=== PATIENT | male | born 1960 | race Caucasian/White ===

== ENCOUNTER 2018-06-10 03:14 | Inpatient (IN) | payer OTHER ==
[2018-06-10] VITALS (9 sets, daily range): BP systolic 105–140; BP diastolic 65–93
[~2018-06-10] VITALS: Ht 180.3 cm; Wt 95.3 kg
--- NOTE | 2018-06-10 03:26 | Emergency Room Report ---
History of Present Illness General Chief Complaint: To Be Triaged Source: Patient, Medical Record Present Illness HPI This is a 57-year-old male with a history of chronic A. fib. He takes about those. He present with chief complaint of chest pain and also dizziness. Before he went to sleep he has some chest pain. That went away. Localized the left chest area. It was dull. He woke up feeling dizzy. When he moved his head thing seemed to be moving. He said he has blurry vision. [place] like there is a screen in front of his eyes. [place] like he has slurred speech. Unsteady gait. No focal deficit. No nausea no vomiting. No fever or chills. Also with tingliness and numbness in his hands. Allergies: Coded Allergies: No Known Allergies (Verified , 08/24/11) Patient History Past Medical History: see triage record, old chart reviewed, HTN, CAD, AFib Past Surgical History: other Pertinent Family History: none Social History: Reports: smoking, alcohol use - Social; Denies: drug use Immunizations: other Reviewed Nursing Documentation: PMH: Agreed; PSxH: Agreed Review of Systems Eye: Denies: eye pain, blurred vision ENT: Denies: ear pain, nose congestion, throat swelling Respiratory: Denies: cough, shortness of breath Cardiovascular: Reports: chest pain; Denies: palpitations Gastrointestinal: Denies: abdominal pain, diarrhea, nausea, vomiting Musculoskeletal: Denies: back pain, joint pain Skin: Denies: rash Neurological: Reports: headache, dizziness; Denies: numbness Endocrine: Denies: increased thirst, increased urine Hematologic/Lymphatic: Denies: easy bruising All Other Systems: negative except mentioned in HPI Physical Exam Sp02 EP Interpretation: reviewed, normal General Appearance: well appearing, no apparent distress, alert Head: normocephalic, atraumatic Eyes: bilateral eye PERRL, bilateral eye EOMI ENT: hearing grossly normal, normal pharynx Neck: full range of motion, supple, no meningismus Respiratory: chest non-tender, lungs clear, normal breath sounds Cardiovascular #1: no murmur, tachycardia, irregularly irregular Gastrointestinal: normal bowel sounds, non tender, no mass, no organomegaly, no bruit, non-distended Musculoskeletal: back normal, gait/station normal, normal range of motion Psychiatric: anxious Skin: warm/dry Medical Decision Making Diagnostic Impression: Primary Impression: Chest pain Qualified Codes: R07.9 - Chest pain, unspecified Additional Impressions: CHF exacerbation Qualified Codes: I50.9 - Heart failure, unspecified Chronic atrial fibrillation Dizziness Hypokalemia ER Course Patient presents with dizziness and chest pain. EKG with chronic A. fib. He has not taking his Lasix for a few days. He did take it tonight however. No evidence of TIA or CVA. Because of his symptoms, will admit for further workup. I contacted Dr. Lao for admission. Lab Results Impression labs unremarkable except for elevated BNP EKG Diagnostic Results Rate: normal Rhythm: other - A. fib ST Segments: other - Nonspecific ST change ASA given to the pt in ED: No Rhythm Strip Diag. Results Rhythm Strip Time: 06:20 EP Interpretation: yes Rate: 78 Rhythm: no PVC's, no ectopy Status: improved Disposition: ADMITTED INPATIENT Condition: Serious Kojo Cat MD Jun 10, 2018 03:26
[2018-06-10] MEDS ORDERED: METOPROLOL SUCC25 MG ORAL ×2 (03:38→11:29)
[2018-06-10] MEDS ORDERED: XARELTO10 MG ORAL (03:39)
[2018-06-10] MEDS ORDERED: FUROSEMIDE80 M1 ORAL (03:40)
[2018-06-10] MEDS ORDERED: NORVASC2.5 MG ORAL (03:40)
[2018-06-10] MEDS ORDERED: CITALOPRAM HBR10 M1 ORAL (03:41)
[2018-06-10] MEDS ORDERED: LISINOPRIL5 MG ORAL ×2 (03:42→11:29)
[2018-06-10] MEDS ORDERED: DIGOXIN0.125 MG/2 ORAL (03:42)
[2018-06-10 03:50] LABS: BASOPHILS % (AUTO) 1.2 % (0.0-2.0); EOSINOPHILS % (AUTO) 2.6 % (0.0-3.0); HEMATOCRIT 48.8 % (42.0-52.0); HEMOGLOBIN 16.6 G/DL (14.2-18.0); LYMPHOCYTES % (AUTO) 37.8 % (20.0-45.0); MEAN CORPUSCULAR VOLUME 95 FL (80-99); MONOCYTES % (AUTO) 10.1 % (1.0-10.0); NEUTROPHILS % (AUTO) 48.3 % (45.0-75.0); PLATELET COUNT 150 K/UL (150-450); RED BLOOD COUNT 5.11 M/UL (4.70-6.10); RED CELL DISTRIBUTION WIDTH 12.5 % (11.6-14.8); WHITE BLOOD COUNT 8.5 K/UL (4.8-10.8)
[2018-06-10 04:03] LABS: ANION GAP 11 mmol/L (5-15); BLOOD UREA NITROGEN 10 mg/dL (7-18); CALCIUM 9.2 MG/DL (8.5-10.1); CARBON DIOXIDE 30 MMOL/L (21-32); CHLORIDE 95 MMOL/L (98-107); POTASSIUM 3.2 MMOL/L (3.5-5.1); SODIUM 136 MMOL/L (136-145)
[2018-06-10 04:04] LABS: APPEARANCE,URINE CLEAR; BILIRUBIN, URINE NEGATIVE (NEGATIVE); GLUCOSE, URINE (UA) NEGATIVE (NEGATIVE); KETONES,URINE NEGATIVE (NEGATIVE); LEUKOCYTE ESTERASE ,URINE 1+ (NEGATIVE); NITRITE,URINE NEGATIVE (NEGATIVE); PH,URINE 5 (4.5-8.0); PROTEIN,URINE 1+ (NEGATIVE); UROBILINOGEN,URINE 4 MG/DL (0.0-1.0)
[2018-06-10 04:05] LABS: INR 1.1 (0.9-1.1)
[2018-06-10 04:15] LABS: COLOR,URINE YELLOW
[2018-06-10 04:18] LABS: ALANINE AMINOTRANSFERASE 29 U/L (12-78); ALBUMIN 3.8 G/DL (3.4-5.0); ALBUMIN/GLOBULIN RATIO 0.7 (1.0-2.7); ALKALINE PHOSPHATASE 142 U/L (46-116); ASPARTATE AMINO TRANSFERASE 34 U/L (15-37); BILIRUBIN,TOTAL 0.7 MG/DL (0.2-1.0); CKMB < 0.5 NG/ML (0.0-3.6); CREATINE KINASE 67 U/L (26-308)
[2018-06-10] MEDS ORDERED: LORazepam Inj 2mg/ml 1ml IV ONE (05:15)
--- NOTE | 2018-06-10 08:57 | Diagnostic Imaging Report ---
Indication: Altered mental status Technique: Contiguous 5 mm thick transaxial imaging of the head obtained in a Siemens Sensation [address] scanner. Soft tissue and bone windows generated. Automatic Exposure Control was utilized. Total Dose length Product (DLP): 1474.[address] Dose Index Volume (CTDIvol): 70.38 mGy Comparison: none Findings: There is mild prominence of the ventricles, basal cisterns, and cerebral sulci consistent with atrophy. Mild, nonspecific, white matter hypoattenuation is noted throughout the brain consistent with chronic small vessel disease. There is no midline shift, edema, acute hemorrhage, mass effect, or abnormal extra-axial fluid collections. Bones and extra osseous soft tissues are unremarkable. Impression: No acute intracranial bleed, mass effect or edema. Mild atrophy of the brain. Nonspecific white matter hypoattenuation probably due to chronic small vessel disease. [facility] has communicated the preliminary results to the Emergency Department. Their findings are largely concordant with this report. The CT scanner at [facility] is accredited by the [employer] and the scans are performed using dose optimization techniques as appropriate to a performed exam including Automatic Exposure control.
--- NOTE | 2018-06-10 11:05 | Diagnostic Imaging Report ---
Indication: Chest pain Comparison: 08/28/2011 A single view chest radiograph was obtained. Findings: Cardiomegaly is present. The left hemidiaphragm is slightly elevated with pleural thickening again noted. Bones are osteopenic. Old rib fractures noted on the right. IMPRESSION: Scarring at the left lung base again noted. Cardiomegaly
[2018-06-10] MEDS ORDERED: CELEXA20 MG ORAL (11:29)
[2018-06-10] MEDS ORDERED: DIGOXIN125 MCG ORAL (11:29)
[2018-06-10] MEDS ORDERED: SPIRONOLACTONE100 MG ORAL (11:30)
[2018-06-10] MEDS ORDERED: XARELTO20 MG ORAL (11:30)
[2018-06-10] MEDS ORDERED: Miralax 17gm pkt ORAL PRN (12:30)
[2018-06-10] MEDS ORDERED: Albuterol/Ipratropium 3ml neb HHN PRN (12:30)
[2018-06-10] MEDS ORDERED: Morphine Sulfate 4mg/ml Inj (IV/IM USE ONLY) IVP PRN (12:30)
[2018-06-10] MEDS ORDERED: Enalaprilat 2.5mg/2ml Inj IV PRN (12:30)
[2018-06-10] MEDS ORDERED: Nitroglycerin Subl 0.4mg tab SL PRN (12:30)
[2018-06-10] MEDS: Metoprolol Succinate XL 25mg tab ORAL SCH (13:38)
[2018-06-10] MEDS: Xarelto 10mg tab ORAL SCH (13:38)
[2018-06-10 14:16] LABS: ANION GAP 6 mmol/L (5-15); BLOOD UREA NITROGEN 12 mg/dL (7-18); CALCIUM 9.1 MG/DL (8.5-10.1); CARBON DIOXIDE 32 MMOL/L (21-32); CHLORIDE 99 MMOL/L (98-107); POTASSIUM 3.8 MMOL/L (3.5-5.1); SODIUM 137 MMOL/L (136-145)
[2018-06-10 14:32] LABS: ALANINE AMINOTRANSFERASE 18 U/L (12-78); ALBUMIN/GLOBULIN RATIO 0.7 (1.0-2.7); ALKALINE PHOSPHATASE 108 U/L (46-116); ASPARTATE AMINO TRANSFERASE 19 U/L (15-37); BILIRUBIN,TOTAL 0.4 MG/DL (0.2-1.0); CHOLESTEROL 155 MG/DL (< 200); HDL CHOLESTEROL 52 MG/DL (40-60); TRIGLYCERIDES 207 MG/DL (30-150)
--- NOTE | 2018-06-10 14:38 | Consultation ---
History of Present Illness General Chief Complaint: Chest Pain Present Illness Allergies: Coded Allergies: No Known Allergies (Verified , 08/24/11) Medication History Scheduled Amlodipine Besylate (Norvasc), 0 ORAL DAILY, (Reported) Citalopram Hydrobromide* (Citalopram Hbr*), 0 ORAL DAILY, (Reported) Citalopram Hydrobromide* (Celexa*), 20 MG ORAL DAILY, (Reported) Digoxin* (Digoxin*), 0 ORAL DAILY, (Reported) Digoxin* (Digoxin*), 125 MCG ORAL DAILY, (Reported) Furosemide* (Lasix*), 80 MG ORAL DAILY, (Reported) Lisinopril (Lisinopril*), 0 ORAL DAILY, (Reported) Lisinopril (Lisinopril*), 2.5 MG ORAL DAILY, (Reported) Metoprolol Succinate* (Metoprolol Succinate*), 0 ORAL DAILY, (Reported) Metoprolol Succinate* (Metoprolol Succinate*), 25 MG ORAL BID, (Reported) Rivaroxaban (Xarelto*), 0 ORAL DAILY, (Reported) Spironolactone* (Spironolactone*), Unknown Dose ORAL DAILY, (Reported) Miscellaneous Medications Rivaroxaban (Xarelto), 20 MG ORAL, (Reported) Patient History Healthcare decision maker Resuscitation status Full Code Advanced Directive on File Physical Exam Last 24 Hour Vital Signs Date Time Temp Pulse Resp B/P (MAP) Pulse Ox O2 Delivery O2 Flow Rate FiO2 06/10/18 13:38 80 140/75 06/10/18 13:25 Room Air 06/10/18 12:45 98.1 80 21 140/75 (96) 99 06/10/18 12:38 98.1 86 20 121/73 100 Room Air 06/10/18 10:15 97.1 78 19 107/65 94 Room Air 06/10/18 08:49 79 23 105/65 99 Room Air 06/10/18 07:34 99.0 90 19 118/68 97 Room Air 06/10/18 06:43 98.1 109 22 110/66 100 Room Air 06/10/18 03:43 90 13 Room Air 06/10/18 03:43 98.1 112 13 111/71 99 Room Air 06/10/18 03:24 98.1 90 13 140/90 99 Room Air Intake and Output 06/09/18 06/10/18 18:59 06:59 Intake Total 0 ml Balance 0 ml Intake Oral 0 ml Laboratory Tests Test 06/10/18 03:43 06/10/18 04:00 06/10/18 04:04 06/10/18 13:45 White Blood Count 8.5 K/UL (4.8-10.8) Red Blood Count 5.11 M/UL (4.70-6.10) Hemoglobin 16.6 G/DL (14.2-18.0) Hematocrit 48.8 % (42.0-52.0) Mean Corpuscular Volume 95 FL (80-99) Mean Corpuscular Hemoglobin 32.5 PG (27.0-31.0) H Mean Corpuscular Hemoglobin Concent 34.0 G/DL (32.0-36.0) Red Cell Distribution Width 12.5 % (11.6-14.8) Platelet Count 150 K/UL (150-450) Mean Platelet Volume 9.0 FL (6.5-10.1) Neutrophils (%) (Auto) 48.3 % (45.0-75.0) Lymphocytes (%) (Auto) 37.8 % (20.0-45.0) Monocytes (%) (Auto) 10.1 % (1.0-10.0) H Eosinophils (%) (Auto) 2.6 % (0.0-3.0) Basophils (%) (Auto) 1.2 % (0.0-2.0) Prothrombin Time 11.2 SEC (9.30-11.50) Prothromb Time International Ratio 1.1 (0.9-1.1) Activated Partial Thromboplast Time 28 SEC (23-33) Sodium Level 136 MMOL/L (136-145) 137 MMOL/L (136-145) Potassium Level 3.2 MMOL/L (3.5-5.1) L 3.8 MMOL/L (3.5-5.1) Chloride Level 95 MMOL/L (98-107) L 99 MMOL/L (98-107) Carbon Dioxide Level 30 MMOL/L (21-32) 32 MMOL/L (21-32) Anion Gap 11 mmol/L (5-15) 6 mmol/L (5-15) Blood Urea Nitrogen 10 mg/dL (7-18) 12 mg/dL (7-18) Creatinine 1.0 MG/DL (0.55-1.30) 1.0 MG/DL (0.55-1.30) Estimat Glomerular Filtration Rate > 60 mL/min (>60) > 60 mL/min (>60) Glucose Level 117 MG/DL (74-106) H 129 MG/DL (74-106) H Calcium Level 9.2 MG/DL (8.5-10.1) 9.1 MG/DL (8.5-10.1) Total Bilirubin 0.7 MG/DL (0.2-1.0) 0.4 MG/DL (0.2-1.0) Aspartate Amino Transf (AST/SGOT) 34 U/L (15-37) 19 U/L (15-37) Alanine Aminotransferase (ALT/SGPT) 29 U/L (12-78) 18 U/L (12-78) Alkaline Phosphatase 142 U/L (46-116) H 108 U/L (46-116) Total Creatine Kinase 67 U/L (26-308) Creatine Kinase MB < 0.5 NG/ML (0.0-3.6) Creatine Kinase MB Relative Index 0.7 Troponin I 0.000 ng/mL (0.000-0.056) 0.009 ng/mL (0.000-0.056) Pro-B-Type Natriuretic Peptide 1130 pg/mL (0-125) H 825 pg/mL (0-125) H Total Protein 8.9 G/DL (6.4-8.2) H 7.2 G/DL (6.4-8.2) Albumin 3.8 G/DL (3.4-5.0) 3.0 G/DL (3.4-5.0) L Globulin 5.1 g/dL 4.2 g/dL Albumin/Globulin Ratio 0.7 (1.0-2.7) L 0.7 (1.0-2.7) L Urine Opiates Screen Negative (NEGATIVE) Urine Barbiturates Screen Negative (NEGATIVE) Phencyclidine (PCP) Screen Negative (NEGATIVE) Urine Amphetamines Screen Negative (NEGATIVE) Urine Benzodiazepines Screen Positive (NEGATIVE) H Urine Cocaine Screen Negative (NEGATIVE) Urine Marijuana (THC) Screen Positive (NEGATIVE) H Urine Color Yellow Urine Appearance Clear Urine pH 5 (4.5-8.0) Urine Specific [place] 1.020 (1.005-1.035) Urine Protein 1+ (NEGATIVE) H Urine Glucose (UA) Negative (NEGATIVE) Urine Ketones Negative (NEGATIVE) Urine Blood Negative (NEGATIVE) Urine Nitrite Negative (NEGATIVE) Urine Bilirubin Negative (NEGATIVE) Urine Urobilinogen 4 MG/DL (0.0-1.0) H Urine Leukocyte Esterase 1+ (NEGATIVE) H Urine RBC 0 /HPF (0 - 0) Urine WBC 0-2 /HPF (0 - 0) Urine Squamous Epithelial Cells None /LPF (NONE/OCC) Urine Bacteria Few /HPF (NONE) Magnesium Level Pending Triglycerides Level 207 MG/DL (30-150) H Cholesterol Level 155 MG/DL (< 200) LDL Cholesterol 78 mg/dL (<100) HDL Cholesterol 52 MG/DL (40-60) Cholesterol/HDL Ratio 3.0 (3.3-4.4) L Thyroid Stimulating Hormone (TSH) 2.298 uiU/mL (0.358-3.740) Digoxin Level < 0.3 NG/ML (0.5-2.0) L Height (Feet): 5 Height (Inches): 11.00 Weight (Pounds): 210 Medications Current Medications Medications (Trade) Dose Ordered Sig/Kaila Route PRN Reason Start Time Stop Time Status Last Admin Dose Admin Acetaminophen (Tylenol) 650 mg Q4H PRN ORAL FEVER 06/10/18 12:30 07/10/18 12:29 Albuterol/ Ipratropium (Albuterol/ Ipratropium) 3 ml Q4H PRN HHN Shortness of Breath 06/10/18 12:30 06/15/18 12:29 Aspirin (ASA) 162 mg DAILY ORAL 06/11/18 09:00 07/11/18 08:59 Enalaprilat (Vasotec) 2.5 mg Q6H PRN IV sbp more than 160 06/10/18 12:30 07/10/18 12:29 Metoprolol Succinate (Toprol XL) 25 mg DAILY ORAL 06/10/18 13:00 07/10/18 12:59 06/10/18 13:38 Morphine Sulfate (Morphine Sulfate) 2 mg Q4H PRN IVP severe Pain (Pain Scale 7-10) 06/10/18 12:30 06/17/18 12:29 Nitroglycerin (Ntg) 0.4 mg Q5M PRN SL Prn Chest Pain 06/10/18 12:30 07/10/18 12:29 Ondansetron HCl (Zofran) 4 mg Q6H PRN IVP Nausea & Vomiting 06/10/18 12:30 07/10/18 12:29 Polyethylene Glycol (Miralax) 17 gm DAILYPRN PRN ORAL Constipation 06/10/18 12:30 07/10/18 12:29 Rivaroxaban (Xarelto) 20 mg DAILY ORAL 06/10/18 13:00 07/10/18 12:59 06/10/18 13:38 Temazepam (Restoril) 15 mg HSPRN PRN ORAL Insomnia 06/10/18 12:30 06/17/18 12:29 Emy Dorsey MD Jun 10, 2018 14:38
--- NOTE | 2018-06-10 17:44 | History & Physical ---
History and Physical History & Physicial Alexander Sutton MD Jun 10, 2018 17:44
--- NOTE | 2018-06-10 17:52 | Cardiology Report ---
APPROVED REPORT EKG Measurement Heart [id number] Atrial fibrillation Prolonged QT Abnormal ECG
--- NOTE | 2018-06-10 21:30 | History and Physical Report ---
DATE OF ADMISSION: 06/10/2018 CHIEF COMPLAINT: Altered mental status. HISTORY OF PRESENT ILLNESS: This is a 57-year-old gentleman with past medical history significant for chronic atrial fibrillation, hypertension, and coronary artery disease who presented to the hospital complaining about dizziness which is normal for him sometimes. He fell asleep, then in the middle of the night, he woke up and felt blurry, altered, able to move the extremities; however, he was feeling foggy and incoherent. Subsequently has slurred speech and unsteady gait. No focal deficit. No nausea or vomiting. No double vision. No fever or chills. Shortly after initial evaluation in the emergency, the patient was admitted to the hospital with chest pain as well as transient mental status changes. PAST MEDICAL HISTORY AND PAST SURGICAL HISTORY: As above history of hypertension, coronary artery disease, atrial fibrillation. MEDICATIONS: Medications at home, please refer to medication reconciliation. ALLERGIES: No known drug allergies. SOCIAL HISTORY: Denies any smoking, alcohol, or drugs at this time. FAMILY HISTORY: Noncontributory. REVIEW OF SYSTEMS: Mostly as above. Complained of chest discomfort, headache, dizziness. No double vision. No loss of consciousness. PHYSICAL EXAMINATION: VITAL SIGNS: On admission from the ER is significant for temperature of 98.1, pulse of 86, respiratory rate 20, and blood pressure 121/73. GENERAL: The patient is awake, responsive, not in no acute distress. HEAD AND NECK: Pupils are reactive to light. Extraocular movements are intact. NECK: Supple. No JVD. LUNGS: Clear. No wheezing or rales. HEART: S1, S2 irregular. No murmur or gallops. ABDOMEN: Soft, nondistended, and nontender. Mildly obese. EXTREMITIES: No cyanosis, clubbing, or edema. NEUROLOGIC: Cranial nerves II to XII grossly unremarkable. Motor strength is 5/5 in all extremities. Gait is intact. RECTAL AND GENITOURINARY: Examination was refused and deferred. LABORATORY AND DIAGNOSTIC DATA: On admission, WBC of 8.5, hemoglobin 16, hematocrit 48, and platelets 150. Sodium 136, potassium 3.2, chloride 95, bicarb 30, BUN 10, creatinine 1.0, and glucose is 117. First and second troponin is 0.00 and 0.009. ProBNP of 1130. UA +1 protein, 4 urine bilirubin , +1 leukocytes. Urine drug screen positive for the benzodiazepines as well as marijuana. EKG was noted to be atrial fibrillation with a rate of 92. No ST elevation was noted. Nonspecific ST changes and T-wave abnormality was noted in leads V1, V2, and V3. The patient had a CT of the head was noted to be no acute intracranial bleed or mass effect or edema. Mild atrophy of the brain, nonspecific white matter hyperattenuation. Chest x-ray was noted to be scarring of the left lung base again and cardiomegaly. ASSESSMENT: 1. Transient altered mental status, possibly due to the medication versus marijuana. 2. Atypical chest pain. 3. Chronic atrial fibrillation. 4. History of coronary artery disease. 5. Hypertension. PLAN: Admit the patient to [facility]. We will followup laboratories and cardiac enzymes. Monitor neurological evaluation. Cardiology consultation with Dr. Lao. Discussed with the patient as well as mother at the bedside. DVT prophylaxis is Xarelto. Code status, Full Code. Alexander Sutton M.D. DR: SAURABH JOB#: [id number] CC:
[2018-06-10] MEDS ORDERED: Digoxin 0.125mg tab ORAL ONE (22:15)
--- NOTE | 2018-06-10 23:15 | Consultation ---
DATE OF CONSULTATION: 06/10/2018 CARDIOLOGY CONSULTATION CONSULTING PHYSICIAN: Tanner Lao M.D. REFERRING PHYSICIAN: Alexander Sutton M.D. REASON FOR CONSULTATION: Altered mentation in the setting of cardiomyopathy. HISTORY OF PRESENT ILLNESS: This is a 57-year-old white male with a known history of chronic atrial fibrillation with history of sudden cardiac , associated with an attempted with cardiac ablation 5 or 6 years ago. He also has a history of coronary artery disease with prior inferior myocardial infarction and has been managed medically. While I have never seen him as a patient, I have seen him personally on several occasions as his mother happens to be my patient. He states that he woke up this morning feeling blurry with regard to his vision and had difficulty speaking, although his "brain" is functioning. He was unsteady on his feet and came to the emergency room for evaluation. He also had an episode of chest pain. He states that he may have missed several doses of his diuretic over the past few days and maybe some other medications, as he took his pills yesterday. In the emergency room, workup included a CAT scan of the brain revealing diffuse white matter disease of mild severity with no acute process. Troponin was 0, natriuretic peptide was elevated at 1100, and EKG revealed atrial fibrillation with nonspecific ST-T wave changes. PAST MEDICAL HISTORY: As outlined above. MEDICATIONS: Reviewed and reconciled. ALLERGIES: None known. SOCIAL HISTORY: He uses marijuana, otherwise no substance abuse. Denies smoking or alcohol abuse. FAMILY HISTORY: Notable for hypertension in his mother. REVIEW OF SYSTEMS: A 10-point review of systems performed, all systems negative other than noted above. PHYSICAL EXAMINATION: VITAL SIGNS: Blood pressure 120/70, pulse 84, and respiratory rate 18. No fevers. HEENT: Conjunctivae are pink. Oropharynx clear. NECK: Supple. Jugular venous pressure is slightly elevated. LUNGS: Few rales. CARDIAC: Irregularly irregular rhythm. Normal S1, S2. A 1/6 systolic murmur at lower left sternal border. ABDOMEN: Obese, soft, and nontender. EXTREMITIES: No edema. NEUROLOGIC: Nonfocal. Mentation and sensorium are intact and based on my previous knowledge of him, he is at baseline. LABORATORY DATA: Additional labs notable for potassium 3.2, BUN 10, and creatinine 1. Hemoglobin 16 and white count 8.5. Chest x-ray reveals cardiomegaly and mild scarring. IMPRESSION: 1. Possible transient ischemic attack. 2. Acute on chronic diastolic congestive heart failure. 3. Chronic atrial fibrillation. 4. History of sudden cardiac and myocardial infarction. 5. No signs of acute coronary insufficiency presently. 6. Hypertension, controlled. PLAN: 1. Cardiac monitoring. 2. Serial troponins. 3. Monitor neurologic status. 4. Diuresis intravenously. 5. Replace potassium. 6. Optimize anti-failure and antianginal regimen. 7. Stress compliance with medication at home. 8. Further neurologic workup to be considered should there be any signs of ongoing or recurring cerebral ischemia. The high risk of stroke in this setting was stressed to the patient should he misses his anticoagulant dose namely Xarelto, rivaroxaban. Tanner Lao M.D. DR: IVY JOB#: [id number] CC:
[2018-06-11] VITALS: BP 136/80
[2018-06-11 04:00] VITALS: BP 112/71
[2018-06-11 07:50] LABS: BASOPHILS % (AUTO) 1.2 % (0.0-2.0); HEMATOCRIT 40.3 % (42.0-52.0); HEMOGLOBIN 13.5 G/DL (14.2-18.0); MEAN CORPUSCULAR VOLUME 98 FL (80-99); MONOCYTES % (AUTO) 10.9 % (1.0-10.0); NEUTROPHILS % (AUTO) 55.9 % (45.0-75.0); PLATELET COUNT 116 K/UL (150-450); RED BLOOD COUNT 4.11 M/UL (4.70-6.10); RED CELL DISTRIBUTION WIDTH 12.6 % (11.6-14.8); WHITE BLOOD COUNT 7.7 K/UL (4.8-10.8)
[2018-06-11 08:00] VITALS: BP 106/66
[2018-06-11] MEDS: Metoprolol Succinate XL 25mg tab ORAL SCH (08:32)
[2018-06-11] MEDS: Xarelto 10mg tab ORAL SCH (08:32)
[2018-06-11 08:39] LABS: ALANINE AMINOTRANSFERASE 29 U/L (12-78); ALBUMIN 2.8 G/DL (3.4-5.0); ALBUMIN/GLOBULIN RATIO 0.7 (1.0-2.7); ALKALINE PHOSPHATASE 96 U/L (46-116); ANION GAP 10 mmol/L (5-15); ASPARTATE AMINO TRANSFERASE 23 U/L (15-37); BILIRUBIN,TOTAL 0.6 MG/DL (0.2-1.0); BLOOD UREA NITROGEN 13 mg/dL (7-18); CALCIUM 8.7 MG/DL (8.5-10.1); CARBON DIOXIDE 29 MMOL/L (21-32); CHLORIDE 101 MMOL/L (98-107); CHOLESTEROL 152 MG/DL (< 200); HDL CHOLESTEROL 50 MG/DL (40-60); POTASSIUM 3.5 MMOL/L (3.5-5.1); SODIUM 140 MMOL/L (136-145)
[2018-06-11] MEDS ORDERED: Aspirin Baby 81mg ORAL SCH (09:00)
[2018-06-11] MEDS ORDERED: Spironolactone 25mg tab ORAL SCH (09:00)
[2018-06-11] MEDS ORDERED: Digoxin 0.125mg tab ORAL SCH (09:00)
[2018-06-11] MEDS ORDERED: Lisinopril 10mg tab ORAL SCH (09:00)
[2018-06-11 09:14] LABS: TRIGLYCERIDES 166 MG/DL (30-150)
[2018-06-11 12:00] VITALS: BP 105/66
--- NOTE | 2018-06-11 13:57 | Internal Med Progress Note ---
Subjective Date of Service: Jun 11, 2018 Physician Name Dane Calix Attending Physician Alexander Sutton MD Current Medications Medications (Trade) Dose Ordered Sig/Kaila Route PRN Reason Start Time Stop Time Status Last Admin Dose Admin Acetaminophen (Tylenol) 650 mg Q4H PRN ORAL FEVER 06/10/18 12:30 07/10/18 12:29 Albuterol/ Ipratropium (Albuterol/ Ipratropium) 3 ml Q4H PRN HHN Shortness of Breath 06/10/18 12:30 06/15/18 12:29 Aspirin (ASA) 162 mg DAILY ORAL 06/11/18 09:00 07/11/18 08:59 06/11/18 08:32 Digoxin (Lanoxin) 0.125 mg DAILY ORAL 06/11/18 09:00 07/11/18 08:59 06/11/18 08:33 Enalaprilat (Vasotec) 2.5 mg Q6H PRN IV sbp more than 160 06/10/18 12:30 07/10/18 12:29 Furosemide (Lasix) 40 mg DAILY IV 06/11/18 09:00 07/11/18 08:59 06/11/18 08:30 Lisinopril (Zestril) 5 mg DAILY ORAL 06/11/18 09:00 07/11/18 08:59 06/11/18 08:31 Metoprolol Succinate (Toprol XL) 25 mg DAILY ORAL 06/10/18 13:00 07/10/18 12:59 06/11/18 08:32 Morphine Sulfate (Morphine Sulfate) 2 mg Q4H PRN IVP severe Pain (Pain Scale 7-10) 06/10/18 12:30 06/17/18 12:29 Nicotine (Nicoderm) 1 patch Q24H TDERMAL 06/10/18 16:00 07/10/18 15:59 06/10/18 15:14 Nitroglycerin (Ntg) 0.4 mg Q5M PRN SL Prn Chest Pain 06/10/18 12:30 07/10/18 12:29 Ondansetron HCl (Zofran) 4 mg Q6H PRN IVP Nausea & Vomiting 06/10/18 12:30 07/10/18 12:29 Polyethylene Glycol (Miralax) 17 gm DAILYPRN PRN ORAL Constipation 06/10/18 12:30 07/10/18 12:29 Potassium Chloride (K-Dur) 40 meq DAILY ORAL 06/11/18 09:00 07/11/18 08:59 06/11/18 08:30 Rivaroxaban (Xarelto) 20 mg DAILY ORAL 06/10/18 13:00 07/10/18 12:59 06/11/18 08:32 Spironolactone (Aldactone) 25 mg DAILY ORAL 06/11/18 09:00 07/11/18 08:59 06/11/18 08:32 Temazepam (Restoril) 15 mg HSPRN PRN ORAL Insomnia 06/10/18 12:30 06/17/18 12:29 06/10/18 21:44 Allergies: Coded Allergies: No Known Allergies (Verified , 08/24/11) ROS Limited/Unobtainable: No Constitutional: Reports: no symptoms HEENT: Reports: no symptoms Cardiovascular: Reports: no symptoms Respiratory: Reports: no symptoms Gastrointestinal/Abdominal: Reports: no symptoms Genitourinary: Reports: no symptoms Neurologic/Psychiatric: Reports: no symptoms Subjective 57 YO M admitted with slurred speech. Now TIA. Cover for Int Med-Dr Sutton. Objective Last Vital Signs Date Time Temp Pulse Resp B/P (MAP) Pulse Ox O2 Delivery O2 Flow Rate FiO2 06/11/18 12:00 Room Air 06/11/18 12:00 97.8 89 20 105/66 (79) 94 06/11/18 10:33 21 Laboratory Tests Test 06/11/18 06:20 White Blood Count 7.7 K/UL (4.8-10.8) Red Blood Count 4.11 M/UL (4.70-6.10) L Hemoglobin 13.5 G/DL (14.2-18.0) L Hematocrit 40.3 % (42.0-52.0) L Mean Corpuscular Volume 98 FL (80-99) Mean Corpuscular Hemoglobin 32.8 PG (27.0-31.0) H Mean Corpuscular Hemoglobin Concent 33.4 G/DL (32.0-36.0) Red Cell Distribution Width 12.6 % (11.6-14.8) Platelet Count 116 K/UL (150-450) L Mean Platelet Volume 8.3 FL (6.5-10.1) Neutrophils (%) (Auto) 55.9 % (45.0-75.0) Lymphocytes (%) (Auto) 29.0 % (20.0-45.0) Monocytes (%) (Auto) 10.9 % (1.0-10.0) H Eosinophils (%) (Auto) 3.0 % (0.0-3.0) Basophils (%) (Auto) 1.2 % (0.0-2.0) Sodium Level 140 MMOL/L (136-145) Potassium Level 3.5 MMOL/L (3.5-5.1) Chloride Level 101 MMOL/L (98-107) Carbon Dioxide Level 29 MMOL/L (21-32) Anion Gap 10 mmol/L (5-15) Blood Urea Nitrogen 13 mg/dL (7-18) Creatinine 1.0 MG/DL (0.55-1.30) Estimat Glomerular Filtration Rate > 60 mL/min (>60) Glucose Level 98 MG/DL (74-106) Calcium Level 8.7 MG/DL (8.5-10.1) Total Bilirubin 0.6 MG/DL (0.2-1.0) Aspartate Amino Transf (AST/SGOT) 23 U/L (15-37) Alanine Aminotransferase (ALT/SGPT) 29 U/L (12-78) Alkaline Phosphatase 96 U/L (46-116) Troponin I 0.002 ng/mL (0.000-0.056) C-Reactive Protein, Quantitative 0.5 mg/dL (0.00-0.90) Pro-B-Type Natriuretic Peptide 1169 pg/mL (0-125) H Total Protein 6.6 G/DL (6.4-8.2) Albumin 2.8 G/DL (3.4-5.0) L Globulin 3.8 g/dL Albumin/Globulin Ratio 0.7 (1.0-2.7) L Triglycerides Level 166 MG/DL (30-150) H Cholesterol Level 152 MG/DL (< 200) LDL Cholesterol 82 mg/dL (<100) HDL Cholesterol 50 MG/DL (40-60) Cholesterol/HDL Ratio 3.0 (3.3-4.4) L Thyroid Stimulating Hormone (TSH) 3.844 uiU/mL (0.358-3.740) Intake and Output 06/10/18 06/11/18 19:00 07:00 Intake Total 300 ml 300 ml Balance 300 ml 300 ml Intake Oral 300 ml 300 ml # Voids 3 Objective PHYSICAL EXAMINATION: GENERAL: The patient is awake, responsive, not in no acute distress. HEAD AND NECK: Pupils are reactive to light. Extraocular movements are intact. NECK: Supple. No JVD. LUNGS: Clear. No wheezing or rales. HEART: S1, S2 irregular. No murmur or gallops. ABDOMEN: Soft, nondistended, and nontender. Mildly obese. EXTREMITIES: No cyanosis, clubbing, or edema. NEUROLOGIC: Cranial nerves II to XII grossly unremarkable. Motor strength is 5/5 in all extremities. Gait is intact. RECTAL AND GENITOURINARY: Examination was refused and deferred. Assessment/Plan Assessment/Plan ASSESSMENT: 1. Transient altered mental status, possibly due to the medication versus marijuana. 2. Atypical chest pain. 3. Chronic atrial fibrillation. 4. History of coronary artery disease. 5. Hypertension. PLAN: Admit the patient to [facility]. We will followup laboratories and cardiac enzymes. Monitor neurological evaluation. Cardiology consultation with Dr. Lao. Discussed with the patient as well as mother at the bedside. DVT prophylaxis is Xarelto. Code status, Full Code. Patient has been discharged per cardiology Dane Calix MD Jun 11, 2018 13:56
[2018-06-11 15:52] VITALS: BP 100/67
[2018-06-12] MEDS ORDERED: Furosemide 80mg tab ORAL SCH (09:00)
--- NOTE | 2018-06-13 02:45 | Progress Note ---
CARDIOLOGY PROGRESS NOTE DATE: 06/11/2018 SUBJECTIVE: The patient was seen and evaluated. Case was discussed with the patient, his and his mother at bedside. The patient has no chest pain. No shortness of breath. He now admits to mixing some medication doses over the past few days. He is not sure why his digoxin level is 0 stating he took it. He thinks he took it. He also is on sure why his marijuana level in the tox screen was positive as he denies using marijuana but his partner does. The patient has no chest pain, no shortness of breath, and he has not had any focal weakness. OBJECTIVE: VITAL SIGNS: Blood pressure 105/66, pulse 89, and respirations 20. Afebrile. NECK: Supple. Jugular venous pressure normal. LUNGS: Clear. CARDIAC: Irregularly irregular rhythm. Normal S1, S2. A 1/6 systolic murmur at apex. ABDOMEN: Soft. EXTREMITIES: No edema. NEUROLOGIC: Speech is fluent. LABORATORY DATA: Labs reviewed. IMPRESSION: 1. Transient ischemic attack. 2. Acute on chronic systolic and diastolic congestive heart failure. 3. Chronic atrial fibrillation. 4. Medication noncompliance. 5. History of sudden cardiac and single-vessel coronary artery disease. PLAN: Medication regimen discussed in detail with the patient and family members. Compliance issues addressed. Risk of noncompliance including stroke and discussed in detail. Outpatient followup with insurance plan physician. Tanner Lao M.D. DR: IVY JOB#: [id number] CC:
--- NOTE | 2018-06-13 09:13 | Discharge Summary ---
Discharge Summary Discharge Summary _ DATE OF ADMISSION: 06/10/2018 DATE OF DISCHARGE: 06/11/2018 DISCHARGED BY: Dr. Sutton REASON FOR ADMISSION: 57 years old male with past medical history of hypertension, coronary artery disease, atrial fibrillation, history of sudden cardiac associated with attempted cardiac ablation 5- 6 years ago, history of coronary artery disease with prior inferior myocardial infarction ( managed medically ), presented to emergency department complaining of chest pain in left substernal area. Patient woke up feeling dizzy. Patient reported blurry vision. He felt he had slurred speech and unsteady gait. He reported at that time tingling and numbness in his hands. All symptoms resolved prior to presentation to ED. No focal deficit noted , no nausea, no vomiting. No fever ,no chills. Upon evaluation vital signs were stable. Laboratory workup revealed no leukocytosis, stable hemoglobin and hematocrit. Potassium 3.2. Troponin negative. EKG revealed atrial fibrillation with controlled ventricular rate . Pro BNP 1130. Urinalysis revealed +1 protein , no evidence of UTI Urine toxicology screen was positive for marijuana and benzodiazepine. CT head revealed no evidence of acute intracranial bleeding , mass effect or edema. Mild atrophy of the brain was noted. Nonspecific white matter hypoattenuation demonstrated , probably due to chronic small vessel disease. Chest x-ray revealed scarring at the left lung base and cardiomegaly. Old rib fracture on the right side noted. No evidence of acute cardiopulmonary pathology. Patient was admitted for further management. [facility] Patient admitted to telemetry floor. Cardiology and pulmonology consults followed. Echocardiogram revealed ejection fraction 55%. Inferior septal hypokinesis noted. Right ventricular systolic pressure of 38 consistent with mild pulmonary hypertension. Serial troponin were negative. EKG revealed chronic atrial fibrillation. Patient was ruled out for acute CA. Patient started on gentle diuresis with close monitoring of volumes and cardiorenal parameters. Anti-failure and antianginal regimens were optimized. Noted subtherapeutic digoxin level. Importance of compliance with medication regimen at home was stressed. . Patient was continued with Xarelto. Hemoglobin hematocrit remained stable. Heart rate was controlled with beta-liam. Blood pressure was stable with beta liam, MONIQUE inhibitor and diuretic. Pain management was addressed. Nitro was on board as needed. TSH was within normal limits. Potassium was replaced. Renal parameters and electrolytes were closely monitored and nephrotoxins were avoided. Per scallop cutter, transient altered mental status, was probably due to transient ischemic attack. Top Hat Body Maker recommended to consider further neurological workup if there would be any signs of ongoing or recurrent cerebral ischemia. Patient at high risk for stroke in setting of multiple risk factors. Antiplatelet therapy with Aspirin continued. ipid panel revealed elevated triglycerides with stable LDL and total cholesterol. Patient was educated on low-fat low-cholesterol diet. Chest pain was likely atypical, secondary to acute CHF exacerbation and possible transient ischemic attack . No further chest pain. Potassium up to 3.8 after replacement. Pro BNP down to 825. Patient counseled on compliance with medication regimen. Due to rapid and unexpected improvement in patient condition, patient was discharged in 1 day. FINAL DIAGNOSES: Possible transient ischemic attack Chronic atrial fibrillation Atypical chest pain, likely due to CHF exacerbation and possible TIA Acute on chronic diastolic congestive heart failure Hypertension Coronary artery disease Noncompliance with medication DISCHARGE MEDICATIONS: List of medication was provided to patient. DISCHARGE INSTRUCTIONS: Patient was discharged home . Follow up with primary care provider in one week. I have been assigned to dictate discharge summary for this account. I was not involved in the patient's management. Kely Lundberg NP Jun 13, 2018 09:13
== END 2018-06-11 16:00 | disposition home or self-care (01) | DRG 292 ==
LOC: EMR 03:25 → 2W 04:03 → EDBEDREQ 09:12 → 2W 13:30 → 2E 23:43
DX: I11.0 Hypertensive heart disease with heart failure (principal); G45.9 Transient cerebral ischemic attack, unspecified; I50.33 Acute on chronic diastolic (congestive) heart failure; I48.2 Chronic atrial fibrillation; R07.89 Other chest pain; I25.10 Atherosclerotic heart disease of native coronary artery without angina pectoris; Z91.14 Patient's other noncompliance with medication regimen; Z79.01 Long term (current) use of anticoagulants; Z86.74 Personal history of sudden cardiac arrest; I27.20 Pulmonary hypertension, unspecified
CPT/HCPCS: 36415; 70450; 71045; 80053; 80061; 80162; 80307; 81003; 82550; 82553; 83735; 83880; 84443; 84484; 85025; 85610; 85730; 86140; 93005; 93306; 94664; 96374; 96375; 99285; J8499